=== PATIENT | male | born 1965 | race Caucasian/White ===

== ENCOUNTER 2020-04-23 10:28 | Day surgery (SDC) | payer OTHER ==
[2020-04-23 10:51] VITALS: TEMP 97.6
[2020-04-23] MEDS ORDERED: methylPREDNISolone ACETATE 80 MG/ML 1 ML VIAL ONE (10:57)
[2020-04-23] MEDS ORDERED: IOPAMIDOL M200 10 ML VIAL ONE (10:57)
--- NOTE | 2020-04-23 11:07 | P.PCN ---
Date of Procedure: 04/23/20 Procedure(s) Performed: PREOPERATIVE DIAGNOSIS: 1- Lumbar Degenerative Disc Diseases 2-Lumbar spondylosis with Facet arthropathy without myelopathy POSTOPERATIVE DIAGNOSIS: 1-Lumber Degenerative Disc Diseases 2-Lumbar spondylosis with Facet arthropathy without myelopathy PROCEDURE 1. Lumbar epidural steroid injection under fluoroscopic guidance at the L4-5 level. (Fluoroscopy imaging was available in radiology department) 2. Lumbar epidurogram. ANESTHESIA: Local with 1% lidocaine 3 ml only EBL: Minimal PROCEDURE INDICATION: The patient with low back pain and radiculitis symptoms unresponsive to conservative treatment. Fluoroscopy was used to optimize visualization of the needle placement and to maximize safety. PROCEDURE DESCRIPTION / TECHNIQUE: The patient was seen and identified in the preoperative area. Risks, benefits, complications including but not limited to infections ,bleeding ,allergic reaction to the medications ,nerve damage and not complete pain releife , and alternatives were discussed with the patient. The patient agreed to proceed with the procedure and signed the consent. IV was started, and vital signs were stable. Patient was taken to the OR and time out was completed. The patient was placed in the prone position on procedure table and a pillow was placed under the abdomen to reduce lumbar lordosis. The lumbosacral area was prepped and draped in the usual sterile fashion.ere closely monitored during the procedure. Vital signs was monitered during the entire procedure. Using anterior-posterior fluoroscopy, the L4-5 interlaminar space was identified and the skin over this site was marked and then infiltrated with 1% lidocaine subcutaneously. Subsequently, a 20-gauge Tuohy epidural needle was inserted and advanced toward the epidural space using the ``Loss of resistance technique and guided by AP and lateral fluoroscopy. The correct needle position in the epidural space was verified with the injection of 2 mL of the water soluble contrast dye Isovue 200 contrast and observing an excellent epidurogram with th e epidural spread of the dye, after negative aspiration for blood and CSF and in the absence of paresthesias. Again after negative aspiration, a 6 ml mixture containing 80 mg of Depo-medrol , and 2 ml of preservative free Normal Saline, and 2 ml of preservative free lidocaine 1% solution was injected and a washout of epidurogram was seen. Needle was withdrawn intact, skin was cleansed, and bandages were applied. COMPLICATIONS: None DISPOSITION / PLANS: The patient was placed in a supine position and transferred to the recovery area in a stable condition for observation. There was no evidenc e of lower extremity motor or sensory deficit after the procedure. Patient was discharged from the recovery room after meeting discharge criteria. Home discharge instructions were given to the patient by the staff. The patient was reexamined prior to discharge. The patient will schedule a follow up in the clinic in 2-4 weeks.
[2020-04-23 11:18] VITALS: RESP 16
[2020-04-23 11:35] VITALS: BP 134/90; PULSE 78
--- NOTE | 2020-04-23 12:13 | FL ---
EXAMINATION TYPE: FL guided pain mgmt statistic DATE OF EXAM: 04/23/2020 CLINICAL HISTORY: Low back pain. TECHNIQUE: Fluoroscopy. COMPARISON: None. FINDINGS: Fluoroscopic guidance was provided during pain relief procedure performed by Dr. Alvarez . A total of 5 seconds of fluoroscopic time was utilized during the procedure and 1 spot images are acquired. Single image acquired shows needle localization at L5 level with contrast injection. IMPRESSION: As Above.
== END 2020-04-23 11:40 | disposition home or self-care (01) ==
LOC: ORPAIN 10:28
PROVIDERS: ATTEND Specialist
DX: M51.16 Intervertebral disc disorders with radiculopathy, lumbar region (principal); M47.26 Other spondylosis with radiculopathy, lumbar region; G40.909 Epilepsy, unspecified, not intractable, without status epilepticus
CPT/HCPCS: 62323; J1040; Q9966

== ENCOUNTER 2020-06-06 11:37 | Day surgery (SDC) | payer OTHER ==
[2020-06-04 16:15] VITALS: BMI 30.5
[~2020-06-06 11:37] MED LIST: LACTATED RINGERS 1,000 ML IV SCH
[2020-06-06 12:13] VITALS: TEMP 97.5
[2020-06-06] MEDS ORDERED: fentaNYL (PF) 50 MCG/ML 2 ML AMP ONE (12:29)
[2020-06-06] MEDS ORDERED: TRIAMCINOLONE ACETONIDE 40 MG/ML 1 ML VIAL ONE (12:29)
[2020-06-06] MEDS ORDERED: IOPAMIDOL M200 10 ML VIAL ONE (12:29)
[2020-06-06] MEDS ORDERED: ROPIVACAINE 5MG/ML 20ML VIAL ONE (12:29)
--- NOTE | 2020-06-06 12:41 | P.PCN ---
Date of Procedure: 06/06/20 Surgeon: Navin De La O Pathology: none sent Condition: stable Disposition: PACU Description of Procedure: PREOPERATIVE DIAGNOSIS: 1-Lumbar radiculopathy 2- Lumber Degenerative Disc Diseases. POSTOPERATIVE DIAGNOSIS: 1-Lumbar radiculopathy. 2-Lumbar Degenerative Disc Diseases PROCEDURE 1. Lumbar epidural steroid injection under fluoroscopic guidance at the L4-5 level in the left paramedian approach. 2. Lumbar epidurogram. ANESTHESIA: Local with 1% lidocaine; and IV moderate conscious sedation with Fentanyl 100 mcg EBL: Minimal PROCEDURE INDICATION: The patient with low back pain and radiculitis symptoms unresponsive to conservative treatment. Fluoroscopy was used to optimize visualization of the needle placement and to maximize safety. PROCEDURE DESCRIPTION / TECHNIQUE: The patient was seen and identified in the preoperative area. Risks, benefits, complications including but not limited to infections ,bleeding ,allergic reaction to the medications ,nerve damage and not complete pain relief , and alternatives were discussed with the patient. The patient agreed to proceed with the procedure and signed the consent. IV was started, and vital signs were stable. Patient was taken to the OR and time out was completed. The patient was placed in the prone position on procedure table and a pillow was placed under the abdomen to reduce lumbar lordosis. The lumbosacral area was prepped and draped in the usual sterile fashion with ChloraPrep.Patient was closely monitored during the procedure. Conscious sedation was used during the procedure to decrease patients anxiety. Vital signs were monitered during the entire procedure. Using anterior-posterior fluoroscopy, the L4-5 interlaminar space was identified and the skin over this site was marked and then infiltrated with 1% lidocaine subcutaneously. Subsequently, a 20-gauge Tuohy epidural needle was inserted and advanced toward the epidural space using the Loss of resistance to air technique and guided by AP and lateral fluoroscopy. The correct needle position in the epidural space was verified with the injection of 1 mL of the water soluble contrast dye Omnipaque 180 contrast and observing an excellent epidurogram with the epidural spread of the dye, after negative aspiration for blood and CSF and in the absence of paresthesias. Again after negative aspiration, a 8 ml mixture containing 40 mg of Kenalog and 5 ml of preservative free Normal Saline, and 2 ml of preservative free ropivacaine 0.5% solution was injected and a washout of epidurogram was seen. Needle was withdrawn intact, skin was cleansed, and bandages were applied. patient tolerated procedure well and was transferred to PACU in stable condition.A copy of the needle placement picture was saved to the fluoroscopy machine. COMPLICATIONS: None DISPOSITION / PLANS: The patient was placed in a supine position and transferred to the recovery area in a stable condition for observation. There was no evidence of lower extremity motor or sensory deficit after the procedure. Patient was discharged from the recovery room after meeting discharge criteria. Home discharge instructions were given to the patient by the staff. The patient was reexamined prior to discharge. The patient will schedule a follow up in the clinic in 2-4 weeks.
[2020-06-06] MEDS ORDERED: IV FLUID CONTINUATION 1,000 ML IV ONE (12:46)
[2020-06-06 12:59] VITALS: BP 139/86; PULSE 76; RESP 18
--- NOTE | 2020-06-06 16:45 | FL ---
EXAMINATION TYPE: FL guided pain mgmt statistic DATE OF EXAM: 06/06/2020 COMPARISON: None HISTORY: Epidural injection TECHNIQUE: Fluoroscopy. FINDINGS: Fluoroscopic guidance was provided during procedure performed by Dr. De La O. A total of 4 seconds of fluoroscopic time was utilized during the procedure and 2 spot images was acquired. IMPRESSION: As Above.
== END 2020-06-06 13:24 | disposition home or self-care (01) ==
LOC: ORPAIN 11:37
PROVIDERS: ATTEND Anesthesiology
DX: M51.16 Intervertebral disc disorders with radiculopathy, lumbar region (principal); I10 Essential (primary) hypertension
CPT/HCPCS: 62323; J3301; J3010; Q9966; J2795

== ENCOUNTER → 2020-08-12 | Outpatient (CLI) | payer OTHER ==
[2020-08-12 09:25] VITALS: BP 123/83; PULSE 90; RESP 18; TEMP 98
--- NOTE | 2020-08-12 18:43 | P.PN ---
Subjective Progress Note Date: 08/12/20 This is a follow-up visit for this 54 years old male with a chronic history of severe low back pain, patient was seen previously [facility] pain [facility], and he stayed closed with lumbar degenerative disc disease and lumbar spondylosis , previous that we have done lumbar epidural steroid in [facility], patient continued to have pain after the epidural steroid injection and later on he had lumbar laminectomy surgery in May 2020, currently patient complaining of severe localized pain with radiation to the right buttock area, pain is severe intensity is increased with any activity interfere with the quality of life, he denies any fever or night sweats. No change in bowel movement or urination, he should continue to use [place] 10/325 every 8 hours when necessary Neurontin 300 mg 3 times a day, and baclofen 20 mg 3 times a day he denies any side effect of the medication and his MS Contin prescription refills from his primary care Objective - Vital Signs Vital signs: Vital Signs Temp 98.0 F 08/12/20 09:17 Pulse 90 08/12/20 09:17 Resp 18 08/12/20 09:17 BP 123/83 08/12/20 09:17 Pulse Ox 97 08/12/20 09:17 - Exam Physical Examinations : -Constitutiona : Cooperative , not in acute distress . -HEENT : nech : supple , no Lymphadenopathy , normal thyroid size . : eyes : no ptosis , no icterus, no photophobia . - neurologic : Cranial nerve II to XII intact , no focal neurological deffecit . -psychatric : alert , oriented X 3 , appropriate affect , intact judgment and insight . -Lymphatic : no Lymphadenopathy . - musculoskeltal : Lumber spine moter stegnth lower extremities ,thigh and legs 4/5 Right side , 5/5 Left side deep tendon reflexes : normal Knee Jerk , normal ankle Jerk lumber facet Loading Test =positive Right , positive Left Range of motion of the lumbar spine Flexion 30 degrees, extension 10 degrees strait leg raising test = positive at 30 degree on the right side elevates positive at 45 at the left side Fabere test= positive Right , and positive LT . Sever tenderness over the Sacroiliac joint on the Right. Gaenslen test= positive right . Seated flexion test= positive right . Assessment and Plan Plan: Assessment and plan=1-right sacroiliitis. 2-lumbar degenerative disc disease. 3-lumbar spondylosis with lumbar facet arthropathy. Patient could benefit from right side sacroiliac steroid injections under fluoroscopy guidance x1 and after that patient will follow up with Dr Kaur - [facility] measures = - Patient's medications are documented in the chart. -Tobacco use is positive, and counseling.Given. -Patient's has not received pneumococcal vaccine. -Advanced care planning discussed, patient not eligible. -Opiate contract signed. -Pain positive and follow-up visit/procedure is scheduled. -Patient's blood pressure measured [123/83 ] , and documented in the record ,and patient will follow up with the primary care. -Patient's weight was measured and body mass index [ ] above the normal limits and counseling was done. and patient instructed to follow-up with the primary care physician. -Patient was not identified as an unhealthy alcohol user Time with Patient: Less than 30
== END | disposition home or self-care (01) ==
LOC: PNWHC3 08:39
PROVIDERS: ATTEND Specialist
DX: M46.1 Sacroiliitis, not elsewhere classified (principal); M47.816 Spondylosis without myelopathy or radiculopathy, lumbar region; M51.36 Other intervertebral disc degeneration, lumbar region; Z79.891 Long term (current) use of opiate analgesic; Z79.899 Other long term (current) drug therapy
CPT/HCPCS: 99211

== ENCOUNTER → 2020-09-10 | Day surgery (SDC) | payer OTHER ==
[2020-09-05 12:10] VITALS: BMI 29.8
[~2020-09-10] MED LIST changes: +IOPAMIDOL M200 10 ML VIAL ONE; -LACTATED RINGERS 1,000 ML IV SCH; +methylPREDNISolone ACETATE 40 MG/ML 1 ML VIAL ONE
[2020-09-10 11:40] VITALS: RESP 16; TEMP 97.6
--- NOTE | 2020-09-10 12:09 | P.PCN ---
Date of Procedure: 09/10/20 Description of Procedure: Preoperative diagnoses: right sacroilitis Postoperative diagnoses: right sacroilitis. Procedure: right sacroiliac joint steroid injection under fluoroscopic guidance. Surgeon: Claude Bear MD Anesthesia: [2 mL of 1% lidocaine Fluoroscopy was used for the procedure and fluoroscopic images were saved to the radiology portion of the patient's chart. EBL: None Procedure indication: The patient had a history of severe chronic low back pain, diagnosed with sacroiliitis unresponsive to conservative treatment. Procedure description: The patient was seen and identified in the preoperative holding area, risks and benefits and alternative of the procedure and possible complications discussed with the patient, and patient agreed with the preceding, patient signed the consent, an IV was started, and vital signs were monitored and were stable throughout the procedure, patient was placed in the prone position on table and the lumbosacral area was prepped and draped with a sterile fashion, vital signs were closely monitored during the procedure, the fluoroscopy camera was placed in the contralateral oblique view on the right sacroiliac joint and the lower part of the joint was identified . Then the skin and subcutaneous tissue was anesthetized using 2 mL of 1% lidocaine then a 22- gauge Quincke-type spinal needle advanced slowly under fluoroscopy and placed in the posterior and inferior border of the right sacroiliac joint, placement confirmed with AP and lateral view, and after appropriate needle placement confirmed and after negative aspiration for heme, 1 mL of Isovue 200 was injected revealing intra-articular spread. Then a solution consisting of 2 ml of ropivacaine 0.5% and 40 mg of depomedrol injected after negative aspiration, no paresthesia during the injection, no resistance to injection, and the needle was removed. Total of 40 mg of depomedrol was used for the procedure. Patient tolerated the procedure well without any complication. The patient was returned to supine position after the back was cleaned and a Band-Aid applied, the patient was transported to recovery room in stable condition and monitored for 30 minutes before being discharged home. The patient will follow up with Dr Kaur
[2020-09-10 12:15] VITALS: BP 133/92; PULSE 79
--- NOTE | 2020-09-10 12:28 | FL ---
EXAMINATION TYPE: FL guided pain mgmt statistic DATE OF EXAM: 09/10/2020 HISTORY: Fluoroscopy time 3 seconds of fluoroscopy provided. IMPRESSION: 1. Fluoroscopy time.
== END ==
LOC: ORPAIN 11:25
PROVIDERS: ATTEND Anesthesiology
DX: G89.29 Other chronic pain (principal); M46.1 Sacroiliitis, not elsewhere classified
CPT/HCPCS: J1030; Q9966; G0260; 27096

== ENCOUNTER → 2020-10-16 | Outpatient (CLI) | payer OTHER ==
[2020-10-16 08:37] VITALS: BP 126/79; PULSE 81; RESP 18; TEMP 98.6
--- NOTE | 2020-10-16 09:04 | P.PN ---
Subjective Progress Note Date: 10/16/20 follow visit for this 54 years old male with a chronic history of severe low back pain, patient had lumbar laminectomy and fusion surgery done in May 2020, recently redundant right sacroiliac joint steroid injection, and this helped his right buttock pain, patient reported that currently he is complaining of severe low back pain in the low back area with radiation to the lower extremity associated with some numbness and tingling sensation that radiates to both feet, he is not able to sit or stand, secondary to the pain, he is able to ambulate freely, he denies any motor or sensory deficit he denies any fever or night sweats, he continued to use [place] 10/325 and Neurontin 300 mg 3 times a d ay as prescribed by Dr PEREZ (neurosurgery ) Objective - Vital Signs Vital signs: Vital Signs Temp 98.6 F 10/16/20 08:33 Pulse 81 10/16/20 08:33 Resp 18 10/16/20 08:33 BP 126/79 10/16/20 08:33 Pulse Ox 97 10/16/20 08:33 - Exam Physical Examinations : -Constitutiona : Cooperative , not in acute distress . -HEENT : nech : supple , no Lymphadenopathy , normal thyroid size . : eyes : no ptosis , no icterus, no photophobia . - neurologic : Cranial nerve II to XII intact , no focal neurological deffecit . -psychatric : alert , oriented X 3 , appropriate affect , intact judgment and insight . -Lymphatic : no Lymphadenopathy . - musculoskeltal : Lumber spine moter stegnth lower extremities ,thigh and legs 5/5 Right side , 5/5 Left side deep tendon reflexes : normal Knee Jerk , normal ankle Jerk lumber facet Loading Test =positive Right , posiutive Left Range of motion of the lumbar spine Flexion 30 degrees, extension 10 degrees strait leg raising test = positive at 30 degree Fabere test= positive Right , and positive LT . Sever tenderness over the Sacroiliac joint on the Right , and Left sides Gaenslen test= positive right ,and positive left . Seated flexion test= positive right ,and positive Left . Assessment and Plan Plan: Assessment and plan=1-bilateral sacroiliitis. 2-lumbar radiculopathy. 3-history of lumbar laminectomy and fusion surgery. 4-myofascial pain syndrome upper lumbar area Patient is already scheduled to have physical therapy in the lumbar area he will start tomorrow Patient could benefit from bilateral sacroiliac joint steroid injection . - PQRS measures = - Patient's medications are documented in the chart. -Tobacco use is positive, and counseling.Given. -Patient's has not received pneumococcal vaccine. -Advanced care planning discussed, patient not eligible. -Opiate contract not signed. -Pain positive and follow-up visit/procedure is scheduled. -Patient's blood pressure measured [ 126/79 ] , and documented in the record ,and patient will follow up with the primary care. -Patient's weight was measured and body mass index [ 30.9 ] above the normal limits and counseling was done. and patient instructed to follow-up with the primary care physician. -Patient was not identified as an unhealthy alcohol user Time with Patient: Less than 30
== END | disposition home or self-care (01) ==
LOC: PNWHC3 08:11
PROVIDERS: ATTEND Specialist
DX: M54.16 Radiculopathy, lumbar region (principal); M46.1 Sacroiliitis, not elsewhere classified; M79.18 Myalgia, other site; Z79.890 Hormone replacement therapy
CPT/HCPCS: 99211

== ENCOUNTER 2020-11-05 09:27 | Day surgery (SDC) | payer OTHER ==
[2020-11-01 17:36] VITALS: BMI 30.7
[2020-11-05 09:45] VITALS: TEMP 97.8
[2020-11-05] MEDS ORDERED: MIDAZOLAM 2 MG/2 ML VIAL ONE (09:52)
[2020-11-05] MEDS ORDERED: ROPIVACAINE 5MG/ML 20ML VIAL ONE (09:52)
[2020-11-05] MEDS ORDERED: IOPAMIDOL M200 10 ML VIAL ONE (09:52)
[2020-11-05] MEDS ORDERED: methylPREDNISolone ACETATE 40 MG/ML 1 ML VIAL ONE (09:52)
[2020-11-05] MEDS ORDERED: fentaNYL (PF) 50 MCG/ML 2 ML AMP ONE (09:52)
[2020-11-05] MEDS ORDERED: LACTATED RINGERS 1,000 ML BAG IV ONE (09:52)
--- NOTE | 2020-11-05 10:13 | P.PCN ---
Date of Procedure: 11/05/20 Description of Procedure: PREOPERATIVE DIAGNOSIS: Sacroiliac joint dysfunction POSTOPERATIVE DIAGNOSIS: Sacroiliac joint dysfunction. PROCEDURES: 1. Bilateral Sacroiliac joint steroid injection 2. Sacroiliac joint arthrogram. SURGEON: Wally Aguirre ANESTHESIA: Local and IV sedation : 2 mg Versed, and 100 g of fentanyl. EBL: None. Specimen removed: None Fluoroscopic image: saved to electronic medical records. PROCEDURE INDICATIONS: This patient with a history of chronic low back pain, and sacroiliac joint dysfunction. Patient tried conservative therapy. Came here for intervention management. PROCEDURE DESCRIPTION: The patient was seen and identified in the preoperative area. Risks, benefits, complications, and alternatives were discussed with the patient. The patient agreed to proceed with the procedure and signed the consent. IV was started, and vital signs were stable. Patient was taken to the OR and time out was completed. The patient was placed in the prone position on procedure table and a pillow was placed under the abdomen to reduce lumbar lordosis. The lumbosacral area was prepped and draped in the usual sterile fashion. Critical pause was taken. Vital signs were closely monitored during the procedure. For the right side, the fluoroscopic camera was placed in left oblique view and right SI joint lower pole was identified. Skin entry point was infiltrated with 1% lidocaine and 22-gauge 3.5 inch spinal needle was introduced into the inferior one-third of SI joint and after penetrating into the joint arthrogram was done. 0.5 ml of [id number] contrast was injected after negative aspiration for blood, and air and negative for paresthesia. Good spread of the contrast into the SI joint has been seen. Then again after negative aspiration of spinal fluid and blood and negative for neurological symptoms, 3 mL of a solution containing total 2.5 mL of 0.5 % preservative-free ropivacaine mixed with 20 mg of Depo-Medrol was injected. The entire procedure was repeated on the left side as above. Needle was withdrawn intact. Skin was cleansed, and bandages were applied. COMPLICATIONS: None. DISPOSITION / PLANS: The patient was placed in a supine position and transferred to the recovery area in a stable condition for observation and was discharged from the recovery room after meeting discharge criteria. Home discharge instructions given to the patient by the staff. The patient was reexamined prior to discharge. The patient will schedule for follow-up visit with the pain clinic in 4 weeks duration.
[2020-11-05] MEDS ORDERED: IV FLUID CONTINUATION 1,000 ML IV ONE (10:18)
--- NOTE | 2020-11-05 10:19 | FL ---
EXAMINATION TYPE: FL guided pain mgmt statistic DATE OF EXAM: 11/05/2020 HISTORY: Fluoroscopy time 5 seconds of fluoroscopy provided. IMPRESSION: 1. Fluoroscopy time.
[2020-11-05 10:25] VITALS: PULSE 85; RESP 16
[2020-11-05 10:32] VITALS: BP 132/79
== END 2020-11-05 10:49 | disposition home or self-care (01) ==
LOC: ORPAIN 09:27
DX: G89.29 Other chronic pain (principal); M53.3 Sacrococcygeal disorders, not elsewhere classified; R56.9 Unspecified convulsions; I10 Essential (primary) hypertension; Z98.890 Other specified postprocedural states
CPT/HCPCS: J2250; J1030; J3010; Q9966; J2795; G0260; 99152

== ENCOUNTER → 2020-12-02 | Outpatient (CLI) | payer OTHER ==
--- NOTE | 2020-12-02 08:42 | P.PN ---
Subjective Progress Note Date: 12/02/20 This is follow visit for this 55 years old male with a chronic history of severe low back pain, patient had lumbar laminectomy and fusion surgery done in May 2020, recently we have done Bilateral sacroiliac joint steroid injection, and this helped his buttock pain, patient reported that the injection helped his pain and he is able to do more activity of daily living, he is not able to sit or stand, secondary to the pain, he is able to ambulate freely, he denies any motor or sensory deficit he denies any fever or night sweats, he continue to use Percocet 10/325 ,,and Neurontin 300 mg 3 times a day , baclofen 20 mg 3 times a day as prescribed by Dr KAUR (neurosurgery ) Physical Examinations : -Constitutiona : Cooperative , not in acute distress . -HEENT : nech : supple , no Lymphadenopathy , normal thyroid size . : eyes : no ptosis , no icterus, no photophobia . - neurologic : Cranial nerve II to XII intact , no focal neurological deffecit . -psychatric : alert , oriented X 3 , appropriate affect , intact judgment and insight . -Lymphatic : no Lymphadenopathy . - musculoskeltal : Lumber spine moter stegnth lower extremities ,thigh and legs 5/5 Right side , 5/5 Left side deep tendon reflexes : normal Knee Jerk , normal ankle Jerk lumber facet Loading Test =positive Right , posiutive Left Range of motion of the lumbar spine Flexion 30 degrees, extension 10 degrees strait leg raising test = positive at 30 degree Fabere test= positive Right , and positive LT . Sever tenderness over the Sacroiliac joint on the Right , and Left sides Gaenslen test= positive right ,and positive left . Seated flexion test= positive right ,and positive Left . Assessment and plan=1-bilateral sacroiliitis. 2-lumbar radiculopathy. 3-history of lumbar laminectomy and fusion surgery. 4-myofascial pain syndrome upper lumbar area Discussed with the patient the option of repeating ,bilateral sacroiliac joint steroid injection . Patient preferred to see Dr. Kaur, and he will follow up with us when necessary if he decides to have injection we can repeat bilateral sacroiliac joint steroid injection - PQRS measures = - Patient's medications are documented in the chart. -Tobacco use is positive, and counseling.Given. -Patient's has not received pneumococcal vaccine. -Advanced care planning discussed, patient not eligible. -Opiate contract not signed. -Pain positive and follow-up visit/procedure is scheduled. -Patient's blood pressure measured [ 139/88 ] , and documented in the record ,and patient will follow up with the primary care. -Patient's weight was measured and body mass index [ 30.9 ] above the normal limits and counseling was done. and patient instructed to follow-up with the primary care physician. -Patient was not identified as an unhealthy alcohol user Objective - Vital Signs Vital signs: Vital Signs Temp 98.0 F 12/02/20 08:29 Pulse 77 12/02/20 08:29 Resp 18 12/02/20 08:29 BP 139/88 12/02/20 08:29 Pulse Ox 98 12/02/20 08:29 Intake & Output 12/01/20 12/02/20 12/02/20 18:59 06:59 18:59 Weight 103.419 kg
== END ==
CPT/HCPCS: 99211

== ENCOUNTER → 2021-02-26 | Outpatient (CLI) | payer OTHER ==
[2021-02-26 08:01] VITALS: BP 126/83; PULSE 82; RESP 18; TEMP 98.1
--- NOTE | 2021-02-26 08:28 | P.PN ---
Subjective Progress Note Date: 02/26/21 This is a follow-up visit for this 55 years old male with a chronic history of severe low back pain, and diagnosed with bilateral sacroiliitis, and had lumbar laminectomy surgery last year, previously we have done bilateral sacroiliac joint steroid injection, currently is complaining of severe mid back pain, patient had MRI of the lumbar spine, and at the [facility], showed that she had multilevel lumbar degenerative disc disease T5 to T78 , she reported that currently most of the pain in the thoracic area, patient done physical therapy in the past without any benefit , and currently he is doing home exercises without any benefit, he is currently on Celebrex 200 mg by mouth daily when necessary, and baclofen 10 mg when necessary, and he reported the current medication is not helping to control his pain, and ambulate using a walker, she some weakness in his lower extremity Objective - Vital Signs Vital signs: Vital Signs Temp 98.1 F 02/26/21 07:51 Pulse 82 02/26/21 07:51 Resp 18 02/26/21 07:51 BP 126/83 02/26/21 07:51 Pulse Ox 97 02/26/21 07:51 - Exam Physical Examinations : -Constitutiona : Cooperative , not in acute distress . -HEENT : nech : supple , no Lymphadenopathy , normal thyroid size . : eyes : no ptosis , no icterus, no photophobia . - neurologic : Cranial nerve II to XII intact , no focal neurological deffecit . -psychatric : alert , oriented X 3 , appropriate affect , intact judgment and insight . -Lymphatic : no Lymphadenopathy . - musculoskeltal : Thoracic Spine Flexion and extension of the thoracic spine associated with severe pain Interval trigger point identified in the right side thoracic paraspinal muscles Lumber spine moter stegnth lower extremities ,thigh and legs 5/5 Right side , 5/5 Left side deep tendon reflexes : normal Knee Jerk , normal ankle Jerk lumber facet Loading Test =positive Right , positive Left Range of motion of the lumbar spine Flexion 30 degrees, extension 10 degrees strait leg raising test = positive at 30 degree Fabere test= positive Right , and positive LT . Sever tenderness over the Sacroiliac joint on the Right , and Left sides Gaenslen test= positive right ,and positive left . Seated flexion test= positive right ,and positive Left . Distraction test= positive bilaterally Assessment and Plan Plan: Assessment and plan=1-thoracic degenerative disc disease. 2-myofascial pain syndrome thoracic paraspinal muscles. 3-bilateral sacroiliitis. 4-laminectomy lumbar area. he could benefit from thoracic epidural steroid injection, T67 OR T7 8, and then the same time he can do trigger point injection Thoracic paraspinal muscles. in the future we can do sacroiliac joint steroid injection. - PQRS measures = - Patient's medications are documented in the chart. -Tobacco use is positive, and counseling.Given. -Patient's has not received pneumococcal vaccine. -Advanced care planning discussed, patient not eligible. -Opiate contract not signed. -Pain positive and follow-up visit/procedure is scheduled. -Patient's blood pressure measured [126/82 ] , and documented in the record ,and patient will follow up with the primary care. -Patient's weight was measured and body mass index [ 30 ] above the normal limits and counseling was done. and patient instructed to follow-up with the primary care physician. -Patient was not identified as an unhealthy alcohol user Time with Patient: Less than 30
== END ==
LOC: PNWHC3 07:38
PROVIDERS: ATTEND Specialist
DX: M51.34 Other intervertebral disc degeneration, thoracic region (principal); M79.18 Myalgia, other site; M46.1 Sacroiliitis, not elsewhere classified; M96.1 Postlaminectomy syndrome, not elsewhere classified
CPT/HCPCS: 99211

== ENCOUNTER 2021-06-17 09:50 | Day surgery (SDC) | payer OTHER ==
[2021-06-16 12:29] VITALS: BMI 28.8
[2021-06-17] MEDS ORDERED: LACTATED RINGERS 1,000 ML IV SCH (10:07)
[2021-06-17] MEDS ORDERED: LIDOCAINE 1% (10MG/ML) FOR IV START INTRADERMA ONE (10:25)
[2021-06-17 10:28] VITALS: TEMP 97.8
[2021-06-17] MEDS ORDERED: MIDAZOLAM 2 MG/2 ML VIAL ONE (10:29)
[2021-06-17] MEDS ORDERED: methylPREDNISolone ACETATE 40 MG/ML 1 ML VIAL ONE (10:29)
[2021-06-17] MEDS ORDERED: fentaNYL (PF) 50 MCG/ML 2 ML AMP ONE (10:29)
[2021-06-17] MEDS ORDERED: IOPAMIDOL M200 10 ML VIAL ONE (10:29)
[2021-06-17] MEDS ORDERED: ROPIVACAINE 5MG/ML 20ML VIAL ONE (10:29)
--- NOTE | 2021-06-17 10:51 | P.PCN ---
Date of Procedure: 06/17/21 Procedure(s) Performed: PREOPERATIVE DIAGNOSIS: 1- Thoracic Degenerative Disc Diseases 2-myofascial pain syndrome thoracic paraspinal muscles POSTOPERATIVE DIAGNOSIS: Same as preop diagnosis. PROCEDURE 1. Thoracic epidural steroid injection under fluoroscopic guidance at the T7-8 level. (Fluoroscopy imaging was available in radiology department) 2. Thoracic epidurogram. 3. Trigger point injection right side Thoracic paraspinal muscles , a total of 3 trigger point injected on the right side thoracic paraspinal muscles. ANESTHESIA: Local with 1% lidocaine 3 ml and , moderate sedation with intravenous Versed 2 mg ,and fentanyle 100 Mcg EBL: Minimal PROCEDURE INDICATION: The patient with mid back pain and radiculitis symptoms unresponsive to conservative treatment. Fluoroscopy was used to optimize visualization of the needle placement and to maximize safety. PROCEDURE DESCRIPTION / TECHNIQUE: The patient was seen and identified in the preoperative area. Risks, benefits, complications including but not limited to infections ,bleeding ,allergic re action to the medications ,nerve damage and not complete pain releife , and alternatives were discussed with the patient. The patient agreed to proceed with the procedure and signed the consent. IV was started, and vital signs were stable. Patient was taken to the OR and time out was completed. The patient was placed in the prone position on procedure table and a pillow was placed under the abd omen to reduce lumbar lordosis. The lumbosacral area was prepped and draped in the usual sterile fashion.ere closely monitored during the procedure. Conscious sedation was used during the procedure to decrease patients anxiety. Vital signs was monitered during the entire procedure. Using anterior-posterior fluoroscopy, the T7-8 interlaminar space was identified and the skin over this site was marked and then infiltrated with 1% lidocaine subcutaneously. Subsequently, a 20-gauge Tuohy epidural needle was inserted and advanced toward the epidural space using the ``Loss of resistance technique and guided by AP and lateral fluoroscopy. The correct needle position in the epidural space was verified with the injection of 2 mL of the water soluble contrast dye Isovue 200 contrast and observing an excellent epidurogram with the epidural spread of the dye, after negative aspiration for blood and CSF and in the absence of paresthesias. Again after negative aspiration, a 6 ml mixture containing 80 mg of Depo-medrol , and 2 ml of preservative free Normal Saline, and 2 ml of preservative free lidocaine 1% solution was injected and a washout of epidurogram was seen. Needle was withdrawn intact, Then after that the trigger point which was identified in the preop holding area, of 3 trigger point identified in the right side thoracic paraspinal muscles each one of them injected with ropivacaine 0.5% 3 ml injected at each trigger point after negative aspiration, injection done using 25-gauge needle and there was no paresthesia during the injection, patient tolerated the procedure well without any complications COMPLICATIONS: None DISPOSITION / PLANS: The patient was placed in a supine position and transferred to the recovery area in a stable condition for observation. There was no evidence of lower extremity motor or sensory deficit after the procedure. Patient was discharged from the recovery room after meeting discharge criteria. Home discharge instructions were given to the patient by the staff. The patient was reexamined prior to discharge. The patient will schedule a follow up in the clinic in 2-4 weeks.
[2021-06-17] MEDS ORDERED: IV FLUID CONTINUATION 1,000 ML IV ONE ×2 (10:52)
[2021-06-17 10:54] VITALS: RESP 18
[2021-06-17 11:31] VITALS: BP 123/79; PULSE 71
--- NOTE | 2021-06-17 11:56 | FL ---
EXAMINATION TYPE: FL guided pain mgmt statistic DATE OF EXAM: 06/17/2021 CLINICAL HISTORY: Back pain. TECHNIQUE: Fluoroscopy. COMPARISON: None. FINDINGS: Fluoroscopic guidance was provided during pain relief procedure performed by Dr. Alvarez . A total of 4 seconds of fluoroscopic time was utilized during the procedure and 1 spot images are acquired. Single image acquired shows needle localization at level of a mid to lower thoracic verteb ra. IMPRESSION: As Above.
== END 2021-06-17 11:37 | disposition home or self-care (01) ==
LOC: ORPAIN 09:50
PROVIDERS: ATTEND Specialist
DX: M79.18 Myalgia, other site (principal)
CPT/HCPCS: 62321; 20553; J2250; J1030; J3010; Q9966; J2795; 99152

== ENCOUNTER 2021-07-15 11:54 | Day surgery (SDC) | payer OTHER ==
[2021-07-11 11:27] VITALS: BMI 29.4
[~2021-07-15 11:54] MED LIST changes: -IOPAMIDOL M200 10 ML VIAL ONE; +LACTATED RINGERS 1,000 ML IV SCH; -methylPREDNISolone ACETATE 40 MG/ML 1 ML VIAL ONE
[2021-07-15 12:55] VITALS: RESP 16; TEMP 98.2
[2021-07-15] MEDS ORDERED: IOPAMIDOL M200 10 ML VIAL ONE (13:08)
[2021-07-15] MEDS ORDERED: TRIAMCINOLONE ACETONIDE 40 MG/ML 1 ML VIAL ONE (13:08)
[2021-07-15] MEDS ORDERED: ROPIVACAINE 5MG/ML 20ML VIAL ONE (13:08)
--- NOTE | 2021-07-15 13:25 | P.PCN ---
Date of Procedure: 07/15/21 Surgeon: Navin De La O Pathology: none sent Condition: stable Disposition: PACU Description of Procedure: PREOPERATIVE DIAGNOSIS: 1- Thoracic Degenerative Disc Diseases 2-myofascial pain syndrome thoracic paraspinal muscles POSTOPERATIVE DIAGNOSIS: Same as preop diagnosis. PROCEDURE 1. Thoracic epidural steroid injection under fluoroscopic guidance at the T7-8 level in the right paramedian approach. 2. Thoracic epidurogram. 3. Trigger point injection right side Thoracic paraspinal muscles , a total of 2 trigger point injected on the right side thoracic paraspinal muscles. ANESTHESIA: Local only with 1% lidocaine EBL: Minimal PROCEDURE INDICATION: The patient with mid back pain and radiculitis symptoms unresponsive to conservative treatment. Fluoroscopy was used to optimize visualization of the needle placement and to maximize safety. PROCEDURE DESCRIPTION / TECHNIQUE: The patient was seen and identified in the preoperative area. Risks, benefits, complications including but not limited to infections ,bleeding ,allergic reaction to the medications ,nerve damage and not complete pain releife , and alternatives were discussed with the patient. The patient agreed to proceed with the procedure and signed the consent. IV was started, and vital signs were stable. Patient was taken to the OR and time out was completed. The patient was placed in the prone position on procedure table and a pillow was placed under the abdomen to reduce lumbar lordosis. The lumbosacral area was prepped and draped in the usual sterile fashion.ere closely monitored during the procedure. Vital signs was monitered during the entire procedure. Using anterior-posterior fluoroscopy, the T 7-8 interlaminar space was identified and the skin over this site was marked and then infiltrated with 1% lidocaine subcutaneously. Subsequently, a 20-gauge Tuohy epidural needle was inserted and advanced toward the epidural space using the ``Loss of resistance technique and guided by AP and lateral fluoroscopy. The correct needle position in the epidural space was verified with the injection of 2 mL of the water soluble contrast dye Isovue 200 contrast and observing an excellent epidurogram with the epidural spread of the dye, after negative aspiration for blood and CSF and in the absence of paresthesias. Again after negative aspiration, a 6 ml mixture containing 40 mg of Kenalog , and 3 ml of preservative free Normal Saline, and 2 ml of preservative free lidocaine 1% solution was injected and a washout of epidurogram was seen. Needle was withdrawn intact, Then after that the trigger point which was identified in the preop holding area, of 2 trigger point identified in the right side thoracic paraspinal muscles each one of them injected with ropivacaine 0.5% 1 ml injected at each trigger point after negative aspiration, injection done using 25-gauge needle and there was no paresthesia during the injection, patient tolerated the procedure well without any complications COMPLICATIONS: None DISPOSITION / PLANS: The patient was placed in a supine position and transferred to the recovery area in a stable condition for observation. There was no evidence of lower extremity motor or sensory deficit after the procedure. Patient was discharged from the recovery room after meeting discharge criteria. Home discharge instructions were given to the patient by the staff. The patient was reexamined prior to discharge. The patient will schedule a follow up in the clinic in 2-4 weeks. A copy of the needle placement picture was saved the C-arm in the radiology department. Of note the patient is a smoker with recent history of intentional weight loss. The patient is scheduled to have thoracic MRI in the next few weeks as he states.
[2021-07-15 13:41] VITALS: BP 116/78; PULSE 68
--- NOTE | 2021-07-15 14:24 | FL ---
Fluoroscopy HISTORY: Pain 17 seconds fluoroscopy time supplied to the referring clinician. 2 intraoperative C-arm images docum ent the procedure. See dictated report from anesthesia.
== END 2021-07-15 13:56 | disposition home or self-care (01) ==
LOC: ORPAIN 11:54
PROVIDERS: ATTEND Anesthesiology
DX: M51.14 Intervertebral disc disorders with radiculopathy, thoracic region (principal); M79.18 Myalgia, other site; I10 Essential (primary) hypertension; F17.200 Nicotine dependence, unspecified, uncomplicated
CPT/HCPCS: 20553; 62321; J3301; Q9966; J2795

== ENCOUNTER → 2021-08-11 | Outpatient (CLI) | payer OTHER ==
[2021-08-11 10:31] VITALS: BP 122/88; PULSE 81; RESP 18
--- NOTE | 2021-08-11 10:44 | P.PN ---
Subjective Progress Note Date: 08/11/21 This is a follow-up visit for this 55 years old male with a chronic history of severe mid ,and low back pain, he is diagnosed with bilateral sacroiliitis, and had lumbar laminectomy surgery last year, recently with a thoracic epidural steroid injections 2 and trigger point injectionthoracic area , he reported that he had relief for a few weeks ,currently is complaining of severe mid back pain, patient had CT myelogram of the thoracic spine, and at the [facility], showed that she had multilevel disc herniation T5 to T78 , patient done physical therapy in the past without any benefit , and currently he is doing home exercises without any benefit, he is currently on baclofen 10 mg when necessary, and he reported the current medication is not helping to control his pain, and ambulate using a walker, she some weakness in his lower extremity Physical Examinations : -Constitutiona : Cooperative , not in acute distress . -HEENT : nech : supple , no Lymphadenopathy , normal thyroid size . : eyes : no ptosis , no icterus, no photophobia . - neurologic : Cranial nerve II to XII intact , no focal neurological deffecit . -psychatric : alert , oriented X 3 , appropriate affect , intact judgment and insight . -Lymphatic : no Lymphadenopathy . - musculoskeltal : Thoracic Spine Flexion and extension of the thoracic spine associated with severe pain Interval trigger point identified in the right side thoracic paraspinal muscles Lumber spine moter stegnth lower extremities ,thigh and legs 5/5 Right side , 5/5 Left side deep tendon reflexes : normal Knee Jerk , normal ankle Jerk lumber facet Loading Test =positive Right , positive Left Range of motion of the lumbar spine Flexion 30 degrees, extension 10 degrees strait leg raising test = positive at 30 degree Fabere test= positive Right , and positive LT . Sever tenderness over the Sacroiliac joint on the Right , and Left sides Gaenslen test= positive right ,and positive left . Seated flexion test= positive right ,and positive Left . Distraction test= positive bilaterally Assessment and Plan Plan: Assessment and plan=1-thoracic degenerative disc disease. 2-myofascial pain syndrome thoracic paraspinal muscles. 3-bilateral sacroiliitis. 4-laminectomy lumbar area. he could benefit from thoracic epidural steroid injection, T67 OR T7 8, and then the same time he can do trigger point injection Thoracic paraspinal muscles. - PQRS measures = - Patient's medications are documented in the chart. -Tobacco use is positive, and counseling.Given. -Patient's has not received pneumococcal vaccine. -Advanced care planning discussed, patient not eligible. -Opiate contract not signed. -Pain positive and follow-up visit/procedure is scheduled. -Patient's blood pressure measured [122/88 ] , and documented in the record ,and patient will follow up with the primary care. -Patient's weight was measured and body mass index [ 28.8] above the normal limits and counseling was done. and patient instructed to follow-up with the primary care physician. -Patient was not identified as an unhealthy alcohol user Time with Patient: Less than 30 Objective - Vital Signs Vital signs: Vital Signs Temp Pulse 81 08/11/21 10:22 Resp 18 08/11/21 10:22 BP 122/88 08/11/21 10:22 Pulse Ox 95 08/11/21 10:22
== END ==
LOC: PNWHC3 09:37
PROVIDERS: ATTEND Specialist
DX: M51.34 Other intervertebral disc degeneration, thoracic region (principal); M79.18 Myalgia, other site; M46.1 Sacroiliitis, not elsewhere classified; Z98.890 Other specified postprocedural states; F17.200 Nicotine dependence, unspecified, uncomplicated
CPT/HCPCS: 99211

== ENCOUNTER 2021-10-28 09:39 | Day surgery (SDC) | payer OTHER ==
[2021-10-27 13:41] VITALS: BMI 28.7
[2021-10-28 09:58] VITALS: TEMP 97.3
[2021-10-28] MEDS ORDERED: LIDOCAINE 1% (10MG/ML) FOR IV START INTRADERMA PRN (10:01)
[2021-10-28] MEDS ORDERED: LACTATED RINGERS 1,000 ML IV SCH (10:01)
[2021-10-28] MEDS ORDERED: TRIAMCINOLONE ACETONIDE 40 MG/ML 1 ML VIAL ONE (10:09)
[2021-10-28] MEDS ORDERED: ROPIVACAINE 5MG/ML 20ML VIAL ONE (10:09)
[2021-10-28] MEDS ORDERED: IOPAMIDOL M200 10 ML VIAL ONE (10:09)
--- NOTE | 2021-10-28 10:34 | P.PCN ---
Date of Procedure: 10/28/21 Description of Procedure: PREOPERATIVE DIAGNOSIS: 1- Thoracic Radiculopathy 2- Myofascial pain syndrome thoracic paraspinal muscles POSTOPERATIVE DIAGNOSIS: Same as preop diagnosis. PROCEDURE 1. Thoracic epidural steroid injection under fluoroscopic guidance at the T7-8 level in the Left paramedian approach. 2. Thoracic epidurogram. 3. Trigger point injection bilateral thoracic paraspinal muscles , a total of 2 trigger point injected on the right side thoracic paraspinal muscles. ANESTHESIA: Local only with 1% lidocaine EBL: Minimal PROCEDURE INDICATION: The patient with mid back pain and radiculitis symptoms unresponsive to conservative treatment. Fluoroscopy was used to optimize visualization of the needle placement and to maximize safety. Has had previous epidural injections at this level without complication. Patient has been off Motrin >2 days and informed not take until 24 hours after procedure. PROCEDURE DESCRIPTION / TECHNIQUE: The patient was seen and identified in the preoperative area. Risks, benefits, complications including but not limited to infections ,bleeding ,allergic reaction to the medications ,nerve damage and not complete pain releife , and alternatives were discussed with the patient. The patient agreed to proceed with the procedure and signed the consent. IV was started, and vital signs were stable. Patient was taken to the OR and time out was completed. The patient was placed in the prone position on procedure table and a pillow was placed under the abdomen to reduce lumbar lordosis. The thoracic area was prepped and draped in the usual sterile fashion.ere closely monitored during the procedure. Vital signs was monitered during the entire procedure. Using anterior-posterior fluoroscopy, the T 7-8 interlaminar space was identified and the skin over this site was marked and then infiltrated with 1% lidocaine subcutaneously. Subsequently, a 20-gauge Tuohy epidural needle was inserted and advanced toward the epidural space using the ``Loss of resistance technique and guided by AP fluoroscopy. The correct needle position in the epidural space was verified with the injection of 2 mL of the water soluble contrast dye Isovue 200 contrast and observing an excellent epidurogram with the epidural spread of the dye, after negative aspiration for blood and CSF and in the absence of paresthesias. Again after negative aspiration, a 4 ml mixture containing 40 mg of Kenalog , and 3 ml of preservative free Normal Saline was injected and a washout of epidurogram was seen. Needle was withdrawn intact, Then after that the trigger point which was identified in the preop holding area, of 2 trigger point identified on the right and left of the midline of T7- T8 thoracic paraspinal muscles each one of them injected with ropivacaine 0.5% 2 ml + 20mg Kenalog injected at each trigger point after negative aspiration, injection done using 25-gauge needle and there was no paresthesia during the injection, patient tolerated the procedure well without any complications COMPLICATIONS: None DISPOSITION / PLANS: The patient was placed in a supine position and transferred to the recovery area in a stable condition for observation. There was no evidence of lower extremity motor or sensory deficit after the procedure. Patient was discharged from the recovery room after meeting discharge criteria. Home discharge instructions were given to the patient by the staff. The patient was reexamined prior to discharge. The patient will schedule a follow up in the clinic in 2-4 weeks.
[2021-10-28 10:37] VITALS: BP 126/86; PULSE 73; RESP 16
--- NOTE | 2021-10-28 10:39 | FL ---
EXAMINATION TYPE: FL guided pain mgmt statistic DATE OF EXAM: 10/28/2021 CLINICAL HISTORY: TESI TECHNIQUE: Fluoroscopy. COMPARISON: 07/15/2021 FINDINGS: Thoracic epidural steroid injection. Fluoroscopic guidance was provided during procedure p erformed by Dr. Toribio. A total of 13 seconds of fluoroscopic time was utilized during the procedu re and 3 spot images were acquired. IMPRESSION: As Above.
== END 2021-10-28 10:54 | disposition home or self-care (01) ==
LOC: ORPAIN 09:39
PROVIDERS: ATTEND Anesthesiology
DX: M54.14 Radiculopathy, thoracic region (principal); M79.18 Myalgia, other site
CPT/HCPCS: 20553; 62321; J3301; J2795; 99152

== ENCOUNTER → 2021-11-13 | Outpatient (CLI) | payer OTHER ==
[2021-11-13 12:53] VITALS: BP 125/80; PULSE 87; RESP 18; TEMP 98.8
--- NOTE | 2021-11-13 13:12 | P.PN ---
Subjective Progress Note Date: 11/13/21 Principal diagnosis: A 55 yr old male with a history of severe and chronic mid back pain secondary to thoracic degenerative disc diseases and spondylosis with facet arthropathy presents today for evaluation status post CABRERA T7-T8 with TPIs. Patient states he experienced 5% pain relief status post procedure. Pain level is currently at 5 out of 10 in intensity, dull, achy in the middle aspect of his mid back without radiation of pain. Pain is provoked by lifting, twisting and bending. Patient has been prolonging surgery due to being a caregiver for multiple grandchildren. Pain is alleviated with medications, epidural injections, ice and heat which has been minimally beneficial, repositioning, physical therapy which provided no pain relief, daily stretches/ exercises and rest. Interventional pain procedures completed include TESI T7-T8 x3. Patient is currently on Tyllenol OTC, Neurontin, Baclofen. Patient denies any side effects of the medication(s), denies excessive drowsiness or sleepiness, denies suicidal ideation and reports that the current pain medication is helping to control the pain and improve activities of daily living. Patient denies any motor or sensory deficits. Patient denies any fever or night sweats, denies any change in the bowel movements or urination. Physical Examination: -Constitutional: Cooperative. Not in acute distress . -HEENT: Neck is supple. No lymphadenopathy. No thyromegaly. Normal thyroid size. Eyes: No ptosis , no icterus, no photophobia. ENT: No auditory deficits. Normal oropharynx. No Thrush. - Respiratory: Chest clear to auscultations bilaterally. No wheezing. No rhonchi. - Cardiovascular: Regular rate and rhythm. S1 / S2 , no S3 , no S4. - Gastrointestinal: Abdomen soft no tenderness. Bowel sounds positive in all four quadrants. No organomegaly. - Genitourinary: Deferred. - Neurologic: Cranial nerve II to XII intact. No focal neurological deficits. - Psychatric: Alert & oriented x 3. Matching mood & appropriate affect. Judgment and insight intact. - Lymphatic: No Lymphadenopathy. - Musculoskeletal: Cervical spine: Muscle bulk/ tone/ strength in the bilateral upper extremities normal. Facet loading test cervical area positive. Thoracic spine: Vertebral body tenderness to palpation over T7 with accompanying paraspinal tenderness to palpation Lumbar spine: Motor bulk/ tone/ strength lower extremities , thigh and legs : 5/5 Deep tendon reflexes : Normal Knee Jerk. Normal Ankle Jerk . Vertebral body tenderness to palpation over Lumbar Facet Loading Test positive Straight Leg Raise: positive at 30 degrees right side/ left side Gaenslen's Test positive Sacral spine : Severe tenderness over the Sacroiliac joint: right side / left side Range of motion: Flexion of the lumbar spine <60 degrees Range of motion: Extension of the lumbar spine <20 degrees Gaenslen's Test positive Anai test: positive right side / left side Assessment and plan: Chronic mid back pain secondary to thoracic degenerative disc disease , spondylosis with facet arthropathy without myelopathy Recommendation of TPIs though pt is disinterested at this time. Discussed reconsideration of TESI in the near future. Pt will continue pain management through medication means at this time. Diagnoses, prognosis and treatment options including but not limited to physical therapy, surgical interventions, interventional therapies and medication management including narcotics and adjuvant medication were discussed. All patient questions answered MAPS reviewed and it was appropriate. I have spent 31 minutes on patient care today. Dr Alvarez was available by phone for the evaluation of this patient. The time was used to review the medical records including relevant urine studies and Prescription history (MAPs), review of the available imaging, evaluation and examination of the patient, coordination of care with the medical staff and if applicable referring physicians, as well as creation of the medical record Objective - Vital Signs Vital signs: Vital Signs Temp 98.8 F 11/13/21 12:47 Pulse 87 11/13/21 12:47 Resp 18 11/13/21 12:47 BP 125/80 11/13/21 12:47 Pulse Ox 96 11/13/21 12:47 PQRS Measure Charge Sheet Mode of Arrival: Ambulatory - Pain Location Back Non-Pharmacological Interventions: Heat, Home Exercise, Ice, Inactivity, Position/Reposition, Stretching Pharmacological Interventions: Epidural, PRN Medication PQRS Narrative: Smoking Status Current every day smoker Blood Pressure 125/80 Pain Intensity [Back] 5 Scale Used Numeric (1 - 10) Hx Alcohol Use (MH) No: HISTORY OF ABUSE. QUIT 10 YEARS AGO Home Medications: Ambulatory Orders Albuterol Inhaler [Ventolin Hfa Inhaler] 2 puff INHALATION Q4H PRN 03/20/20 Eslicarbazepine Acetate [Aptiom] 1,200 mg PO HS 03/20/20 Gabapentin 300 mg PO TID PRN 03/20/20 amLODIPine [Norvasc] 10 mg PO DAILY 03/20/20 hydroCHLOROthiazide 25 mg PO DAILY 03/20/20 levETIRAcetam [Keppra] 500 mg PO Q12HR 03/20/20 Baclofen [Lioresal] 20 mg PO TID PRN 08/08/20 Fluticasone/Salmeterol [Advair 250-50 Diskus] 1 inhalation PO BID 08/08/20 Ibuprofen [Motrin] 800 mg PO Q6H PRN 02/20/21 Finasteride [Proscar] 5 mg PO DAILY 06/16/21
== END ==
LOC: PNWHC3 12:12
PROVIDERS: ATTEND Specialist
DX: M51.34 Other intervertebral disc degeneration, thoracic region (principal); M47.814 Spondylosis without myelopathy or radiculopathy, thoracic region; G89.29 Other chronic pain; F17.200 Nicotine dependence, unspecified, uncomplicated
CPT/HCPCS: 99211

== ENCOUNTER → 2022-07-30 | Outpatient (CLI) | payer MEDICARE, OTHER ==
[2022-07-30 14:35] VITALS: BP 158/94; PULSE 95; RESP 18; TEMP 98.5
--- NOTE | 2022-07-30 14:47 | P.PAINPG ---
PQRS Measure Charge Sheet Comment: A 56 yr old male with a history of severe and chronic mid back pain secondary to thoracic DDD, spondylosis and facet arthropathy without myelopathy presents today for evaluation. Pain level is currently at 5 /10 in intensity, constant, localized in the center of his mid back, sore shooting towards the flanks. Pain is provoked by walking/ standing for periods of 15 min or more, bending, lifting. Pain is alleviated with PT yrs ago, medications (Baclofen, Neurontin, Ibu), repositioning and rest. Interventional pain procedures completed include TESI T7-T8, TPIs of Thoracic spine, BL SI x2, LESIs. Patient is currently on Neurontin, Baclofen, Ibuprofen Patient denies any side effects of the medication(s), denies excessive drowsiness or sleepiness, denies suicidal ideation and reports that the current pain medication is helping to control the pain and improve activities of daily living. Patient denies any motor or sensory deficits. Patient denies any fever or night sweats, denies any change in the bowel movements or urination. Physical Examination: -Constitutional: Cooperative. Not in acute distress . - Neurologic: Cranial nerve II to XII intact. No focal neurological deficits. - Psychatric: Alert & oriented x 3. Matching mood & appropriate affect. Judgment and insight intact. - Musculoskeletal: Cervical spine: Muscle bulk/ tone/ strength in the bilateral upper extremities normal Vertebral body tenderness to palpation over Spurling test positive Distraction test positive Facet loading test positive Thoracic spine Muscle bulk / tone/ strength in the bilateral paraspinal muscles normal Vertebral body tender to palpation over T8 Facet loading test positive Lumbar spine: Motor bulk/ tone/ strength lower extremities , thigh and legs : 5/5 Deep tendon reflexes : Normal Knee Jerk. Normal Ankle Jerk . Vertebral body tenderness to palpation over Lumbar Facet Loading Test positive Straight Leg Raise: positive at 30 degrees right side/ left side Gaenslen's Test positive Sacral spine : Severe tenderness over the Sacroiliac joint: right side / left side Range of motion: Flexion of the lumbar spine <60 degrees Range of motion: Extension of the lumbar spine <20 degrees Gaenslen's Test positive Anai test: positive right side / left side Thigh Thrust Test Sacral Thrust Test Assessment and plan: Chronic low back pain secondary to lumbar degenerative disc disease, spondylosis with facet arthropathy without myelopathy Recommendation of TESI T8-T9. May need a series, up to 4 per 12 mo period, for optimal pain relief. Risks, benefits of procedure discussed and pt verbalized understanding. Admits to anticoagulant use or medical history of diabetes. Protocol for discontinuation/ continuation of medications lam procedure discussed. All patient questions answered I have spent less than 30 minutes on patient care today. Dr Alvarez was available by phone for the evaluation of this patient. The time was used to review the medical records including relevant urine studies and Prescription history (MAPs), review of the available imaging, evaluation and examination of the patient, coordination of care with the medical staff and if applicable referring physicians, as well as creation of the medical record - Pain Location Bilateral Lower Back Non-Pharmacological Interventions: Inactivity, Position/Reposition, Stretching Pharmacological Interventions: PRN Medication, Scheduled Medication PQRS Narrative: Smoking Status Current every day smoker Hx Alcohol Use (MH) No: HISTORY OF ABUSE. QUIT 10 YEARS AGO Home Medications: Ambulatory Orders Albuterol Inhaler [Ventolin Hfa Inhaler] 2 puff INHALATION Q4H PRN 03/20/20 Eslicarbazepine Acetate [Aptiom] 1,200 mg PO HS 03/20/20 Gabapentin 300 mg PO TID PRN 03/20/20 amLODIPine [Norvasc] 10 mg PO DAILY 03/20/20 hydroCHLOROthiazide 25 mg PO DAILY 03/20/20 levETIRAcetam [Keppra] 500 mg PO Q12HR 03/20/20 Baclofen [Lioresal] 20 mg PO TID PRN 08/08/20 Fluticasone Propion/Salmeterol [Advair 250-50 Diskus] 1 inhalation PO BID 08/08/20 Ibuprofen [Motrin] 800 mg PO Q6H PRN 02/20/21 Finasteride [Proscar] 5 mg PO DAILY 06/16/21 Diclofenac Sodium Gel [Voltaren Gel] 100 gm TOPICAL BID PRN 30 Days #1 each 07/30/22 Controlled Substance Measures - Controlled Substance Measures Is patient prescribed a controlled substance at discharge?: No
== END ==
LOC: PNWHC3 14:09
PROVIDERS: ATTEND Specialist
DX: M47.816 Spondylosis without myelopathy or radiculopathy, lumbar region (principal); E11.9 Type 2 diabetes mellitus without complications; G89.29 Other chronic pain; M51.36 Other intervertebral disc degeneration, lumbar region; F17.200 Nicotine dependence, unspecified, uncomplicated
CPT/HCPCS: 99211

== ENCOUNTER 2022-09-03 10:58 | Day surgery (SDC) | payer MEDICARE, OTHER ==
[2022-08-31 18:08] VITALS: BMI 28.8
[2022-09-03] MEDS ORDERED: LACTATED RINGERS 1,000 ML IV SCH (12:31)
[2022-09-03] MEDS ORDERED: LIDOCAINE 1% (10MG/ML) FOR IV START INTRADERMA PRN (12:31)
[2022-09-03 12:39] VITALS: TEMP 98
[2022-09-03] MEDS ORDERED: methylPREDNISolone ACETATE 80 MG/ML 1 ML VIAL ONE (12:56)
[2022-09-03] MEDS ORDERED: IOPAMIDOL M200 10 ML VIAL ONE (12:56)
--- NOTE | 2022-09-03 13:08 | P.PCN ---
Date of Procedure: 09/03/22 Procedure(s) Performed: PREOPERATIVE DIAGNOSIS: 1- Thoracic Degenerative Disc Diseases 2-myofascial pain syndrome thoracic paraspinal muscles POSTOPERATIVE DIAGNOSIS: Same as preop diagnosis. PROCEDURE 1. Thoracic epidural steroid injection under fluoroscopic guidance at the T8-9 level. (Fluoroscopy imaging was available in radiology department) 2. Thoracic epidurogram. ANESTHESIA: Local with 1% lidocaine 3 ml only. EBL: Minimal PROCEDURE INDICATION: The patient with mid back pain and radiculitis symptoms unresponsive to conservative treatment. Fluoroscopy was used to optimize visualization of the needle placement and to maximize safety. PROCEDURE DESCRIPTION / TECHNIQUE: The patient was seen and identified in the preoperative area. Risks, benefits, complications including but not limited to infections ,bleeding ,allergic reaction to the medications ,nerve damage and not complete pain releife , and alternatives were discussed with the patient. The patient agreed to proceed with the procedure and signed the consent. IV was started, and vital signs were stable. Patient was taken to the OR and time out was completed. The patient was placed in the prone position on procedure table and a pillow was placed under the abdomen to reduce lumbar lordosis. The Thoracic area was prepped and draped in the usual sterile fashion.ere closely monitored during the procedure. Vital signs was monitered during the entire procedure. Using anterior-posterior fluoroscopy, the T8-9 interlaminar space was identified and the skin over this site was marked and then infiltrated with 1% lidocaine subcutaneously. Subsequently, a 20-gauge Tuohy epidural needle was inserted and advanced toward the epidural space using the ``Loss of resistance technique and guided by AP and lateral fluoroscopy. The correct needle position in the epidural space was verified with the injection of 2 mL of the water soluble contrast dye Isovue 300 contrast and observing an excellent epidurogram with the epidural spread of the dye, after negative aspiration for blood and CSF and in the absence of paresthesias. Again after negative aspiration, a 4 ml mixture containing 80 mg of Depo-medrol , and 2 ml of preservative free Normal Saline, and 1 ml of preservative free lidocaine 1% solution was injected and a washout of epidurogram was seen. Needle was withdrawn intact,, patient tolerated the procedure well without any complications COMPLICATIONS: None DISPOSITION / PLANS: The patient was placed in a supine position and transferred to the recovery area in a stable condition for observation. There was no evidence of lower extremity motor or sensory deficit after the procedure. Elmer archer was discharged from the recovery room after meeting discharge criteria. Home discharge instructions were given to the patient by the staff. The patient was reexamined prior to discharge. The patient will schedule a follow up in the clinic in 2-4 weeks.
[2022-09-03 13:18] VITALS: BP 153/96; PULSE 82; RESP 16
--- NOTE | 2022-09-03 13:26 | FL ---
EXAMINATION TYPE: FL guided pain mgmt statistic DATE OF EXAM: 09/03/2022 HISTORY: Fluoroscopy time 11 seconds of fluoroscopy provided. IMPRESSION: 1. Fluoroscopy time.
== END 2022-09-03 13:33 | disposition home or self-care (01) ==
LOC: ORPAIN 10:58
PROVIDERS: ATTEND Specialist
DX: M51.14 Intervertebral disc disorders with radiculopathy, thoracic region (principal); M79.18 Myalgia, other site
CPT/HCPCS: 62321; J1040; Q9966

== ENCOUNTER → 2022-09-17 | Outpatient (CLI) | payer MEDICARE, OTHER ==
[2022-09-17 12:37] VITALS: BP 149/91; PULSE 70; RESP 18; TEMP 98.7
--- NOTE | 2022-09-17 14:58 | P.PAINPG ---
PQRS Measure Charge Sheet Comment: A 56 yr old male with a history of severe and chronic mid back pain secondary to thoracic DDD and spondylosis with facet arthropathy without myelopathy presents today for evaluation s/p TRINI T8-T9. Pt states he experienced 50% pain relief x 2 wks s/p procedure. Pain level is provoked at 10/10 in intensity, constant, localized in the thoracic spine, pressure like in character w shooting towards the BL flanks. Pain is provoked by twisting, bending. Pain is alleviated with medications, topicals, injections, ice, heat, PT x 1 1/2 wks which provoked pain, home stretching as needed, repositioning and rest. Interventional pain procedures completed include TRINI T8-T9 x1, L4-L5 x1; R SI injection Patient is currently on Neurontin, Ibu Patient denies any side effects of the medication(s), denies excessive drowsiness or sleepiness, denies suicidal ideation and reports that the current pain medication is helping to control the pain and improve activities of daily living. Patient denies any motor or sensory deficits. Patient denies any fever or night sweats, denies any change in the bowel movements or urination. Physical Examination: -Constitutional: Cooperative. Not in acute distress . - Neurologic: Cranial nerve II to XII intact. No focal neurological deficits. - Psychatric: Alert & oriented x 3. Matching mood & appropriate affect. Judgment and insight intact. - Musculoskeletal: Cervical spine: Muscle bulk/ tone/ strength in the bilateral upper extremities normal Vertebral body tenderness to palpation over Spurling test positive Distraction test positive Facet loading test positive Thoracic spine Muscle bulk / tone/ strength in the bilateral paraspinal muscles normal Vertebral body tender to palpation over Facet loading test positive Lumbar spine: Motor bulk/ tone/ strength lower extremities , thigh and legs : 5/5 Deep tendon reflexes : Normal Knee Jerk. Normal Ankle Jerk . Vertebral body tenderness to palpation over Lumbar Facet Loading Test positive Straight Leg Raise: positive at 30 degrees right side/ left side Gaenslen's Test positive Sacral spine : Severe tenderness over the Sacroiliac joint: right side / left side Range of motion: Flexion of the lumbar spine <60 degrees Range of motion: Extension of the lumbar spine <20 degrees Gaenslen's Test positive Anai test: positive right side / left side Thigh Thrust Test Sacral Thrust Test Assessment and plan: Chronic mid back pain secondary to thoracic DDD, spondylosis with facet arthropathy without myelopathy Pt exhibited sufficient pain relief w TRINI procedure. He will manage residual pain at home and may follow up at our clinic as needed. All patient questions answered I have spent less than 30 minutes on patient care today. Dr Alvarez was available by phone for the evaluation of this patient. The time was used to review the medical records including relevant urine studies and Prescription history (MAPs), review of the available imaging, evaluation and examination of the patient, coordination of care with the medical staff and if applicable referring physicians, as well as creation of the medical record PQRS Narrative: Smoking Status Current every day smoker Hx Alcohol Use (MH) No: HISTORY OF ABUSE. QUIT 10 YEARS AGO Home Medications: Ambulatory Orders Albuterol Inhaler [Ventolin Hfa Inhaler] 2 puff INHALATION Q4H PRN 03/20/20 Eslicarbazepine Acetate [Aptiom] 1,200 mg PO HS 03/20/20 Gabapentin 300 mg PO TID PRN 03/20/20 amLODIPine [Norvasc] 10 mg PO DAILY 03/20/20 hydroCHLOROthiazide 25 mg PO DAILY 03/20/20 Baclofen [Lioresal] 20 mg PO TID PRN 08/08/20 Fluticasone Propion/Salmeterol [Advair 250-50 Diskus] 1 inhalation PO BID 08/08/20 Ibuprofen [Motrin] 800 mg PO Q6H PRN 02/20/21 Finasteride [Proscar] 5 mg PO DAILY 06/16/21 Diclofenac Sodium Gel [Voltaren Gel] 100 gm TOPICAL BID PRN 30 Days #1 each 09/03/22 Controlled Substance Measures - Controlled Substance Measures Is patient prescribed a controlled substance at discharge?: No
== END ==
LOC: PNWHC3 11:54
PROVIDERS: ATTEND Specialist
DX: M47.814 Spondylosis without myelopathy or radiculopathy, thoracic region (principal); G89.29 Other chronic pain; M51.34 Other intervertebral disc degeneration, thoracic region; F17.200 Nicotine dependence, unspecified, uncomplicated
CPT/HCPCS: 99211

== ENCOUNTER → 2023-02-10 | Outpatient (CLI) | payer MEDICARE, OTHER ==
--- NOTE | 2023-02-10 13:31 | P.PAINPG ---
PQRS Measure Charge Sheet Comment: A 57 yr old male with a history of severe and chronic mid back pain secondary to thoracic DDD and spondylosis with facet arthropathy without myelopathy presents today for evaluation s/p TRINI T8-9. PT states he experienced 80-90% pain relief x 3 mo s/p procedure. Pain level is provoked at 8 /10 in intensity, constant, localized in the mid central thoracic spine, stabbing in character w shooting towards the R ribs. Pain is provoked by walking/ sitting for periods of 20 min or over activity. Pain is alleviated with PT in 2019 without relief, use of a TENS unit in 2019 which provoked pain, physician guided home stretching daily since 2019, injections, medications, topical, repositioning and rest. Interventional pain procedures completed include TRINI T8-T9 x1 Patient is currently on Neurontin, Baclofen, Ibu, Voltaren gel Patient denies any side effects of the medication(s), denies excessive drowsiness or sleepiness, denies suicidal ideation and reports that the current pain medication is helping to control the pain and improve activities of daily living. Patient denies any motor or sensory deficits. Patient denies any fever or night sweats, denies any change in the bowel movements or urination. Physical Examination: -Constitutional: Cooperative. Not in acute distress . - Neurologic: Cranial nerve II to XII intact. No focal neurological deficits. - Psychatric: Alert & oriented x 3. Matching mood & appropriate affect. Judgment and insight intact. - Musculoskeletal: Cervical spine: Muscle bulk/ tone/ strength in the bilateral upper extremities normal Vertebral body tenderness to palpation over Spurling test positive Distraction test positive Facet loading test positive TTP Thoracic spine Muscle bulk / tone/ strength in the bilateral paraspinal muscles normal Vertebral body tender to palpation over T8 Facet loading test positive TTP Lumbar spine: Motor bulk/ tone/ strength lower extremities , thigh and legs : 5/5 Deep tendon reflexes : Normal Knee Jerk. Normal Ankle Jerk . Vertebral body tenderness to palpation over Lumbar Facet Loading Test positive Straight Leg Raise: positive at 30 degrees right side/ left side Gaenslen's Test positive Sacral spine : Severe tenderness over the Sacroiliac joint: right side / left side Range of motion: Flexion of the lumbar spine <60 degrees Range of motion: Extension of the lumbar spine <20 degrees Gaenslen's Test positive right side / left side Anai test: positive right side / left side Thigh Thrust Test positive right side / left side Sacral Thrust Test positive right side / left side Assessment and plan: Chronic mid back pain secondary to thoracic DDD, spondylosis with facet arthropathy without myelopathy Recommendation of TRINI T8-T9 #2. May need a series of injections for optimal pain relief. Risks, benefits of procedure discussed and pt verbalized understanding. Admits to anticoagulant use or medical history of diabetes. [place] 5/325mg #18 NR. Use, side effects, adverse reactions and safe storage discussed. Protocol for discontinuation/ continuation of medications lam procedure discussed. Minimal anesthesia provided, if clinically indicated, consisting of Versed and Fentanyl. All questions answered. I have spent less than 30 minutes on patient care today. Dr Alvarez was available by phone for the evaluation of this patient. The time was used to review the medical records including relevant urine studies and Prescription history (MAPs), review of the available imaging, evaluation and examination of the patient, coordination of care with the medical staff and if applicable referring physicians, as well as creation of the medical record PQRS Narrative: Smoking Status Current every day smoker Hx Alcohol Use (MH) No: HISTORY OF ABUSE. QUIT 10 YEARS AGO Home Medications: Ambulatory Orders Eslicarbazepine Acetate [Aptiom] 800 mg PO HS 03/20/20 Gabapentin 300 mg PO DAILY@1300 03/20/20 amLODIPine [Norvasc] 10 mg PO HS 03/20/20 hydroCHLOROthiazide 25 mg PO HS 03/20/20 Baclofen [Lioresal] 20 mg PO DAILY@1300 08/08/20 Ibuprofen [Motrin] 800 mg PO BID 02/20/21 Finasteride [Proscar] 5 mg PO DAILY 06/16/21 Diclofenac Sodium Gel [Voltaren Gel] 1 applic TOPICAL BID PRN 10/09/22 Eslicarbazepine Acetate [Aptiom] 400 mg PO HS 10/09/22 HYDROcodone/APAP 5-325MG [[place] 5-325] 1 tab PO Q4HR PRN 3 Days #18 tab 02/10/23 Controlled Substance Measures - Controlled Substance Measures Is patient prescribed a controlled substance at discharge?: Yes When asked, does pt state using other controlled substances?: No If prescribed controlled substance>3 days was MAPS reviewed?: Prescribed <3 Days If Rx opioid, was Start Talking consent form obtained?: Yes If opioid is for acute pain is fill amount 7 days or less?: Yes Was information provided regarding opioid addiction?: Yes
[2023-02-10 13:57] VITALS: BP 150/95; PULSE 80; RESP 18; TEMP 98.6
== END ==
LOC: PNWHC3 11:03
PROVIDERS: ATTEND Specialist
DX: M51.34 Other intervertebral disc degeneration, thoracic region (principal); M47.814 Spondylosis without myelopathy or radiculopathy, thoracic region; G89.29 Other chronic pain; F17.200 Nicotine dependence, unspecified, uncomplicated
CPT/HCPCS: 99211

== ENCOUNTER 2023-03-02 10:30 | Day surgery (SDC) | payer MEDICARE, OTHER ==
[2023-03-02 11:15] VITALS: RESP 16; TEMP 96.4
[2023-03-02] MEDS ORDERED: IOPAMIDOL M200 10 ML VIAL ONE (11:22)
[2023-03-02] MEDS ORDERED: DEXAMETHASONE SOD PHOSPHATE 10 MG/ML 1 ML VIAL ONE (11:22)
--- NOTE | 2023-03-02 11:41 | P.PCN ---
Date of Procedure: 03/02/23 Surgeon: Navin De La O Pathology: none sent Condition: stable Disposition: PACU Description of Procedure: PROCEDURE 1. Thoracic epidural steroid injection under fluoroscopic guidance, T8-9 . 2. Thoracic epidurogram. : PREOPERATIVE DIAGNOSIS: Thoracic DDD POSTOPERATIVE DIAGNOSIS: : Same as above ANESTHESIA: Local only anesthesia with 1% lidocaine PROCEDURE INDICATION: The patient with neck pain and radiculopathy unresponsive to conservative treatment consents for procedure. PROCEDURE DESCRIPTION / TECHNIQUE: The patient was seen and identified in the preoperative area. Risks, benefits, complications, including but not limited to infections ,bleeding , allergic reactions to the medications ,and not complete pain relief, and alternatives were discussed with the patient, the patient agreed to proceed with the procedure and signed the consent. Patient was taken to the OR and time out was completed. The patient was placed in the prone position on the procedure table. A pillow was placed under the patients chest to increase the flexion of the cervical spine . The cervical area was prepped and draped in the usual sterile fashion. Vital signs were closely monitored during the procedure. Conscious sedation was used during the procedure to decrease patients anxiety. Using anterior-posterior fluoroscopy, the T9 interlaminar space was identified and the skin over this site was marked and then infiltrated with 1% lidocaine subcutaneously. Subsequently, a 20-gauge 3-1/2-inch Tuohy epidural needle was inserted and advanced toward the epidural space by means of loss of resistance to air technique and guided by AP and lateral fluoroscopy. The needle tip contacted the lamina of T8 vertebra first, then it was walked off bone and into the epidural space using the loss of to air and fluoroscopic guidance to identify the epidural space. The correct needle position in the epidural space was verified with the injection of 1 mL of the water soluble contrast dye Isovue and observing an excellent epidurogram with the epidural spread of the dye, after negative aspiration for blood and CSF and in the absence of paresthesias. Again after negative aspiration, a 5 ml mixture containing 10 mg of Decadron and 4 ml of preservative free Normal Saline solution was injected and a washout of epidurogram was seen. Needle was withdrawn intact, skin was cleansed, and bandages were applied. A copy of the needle placement picture was saved to the fluoroscopy machine.
--- NOTE | 2023-03-02 11:59 | FL ---
EXAMINATION TYPE: FL guided pain mgmt statistic DATE OF EXAM: 03/02/2023 HISTORY: Fluoroscopy time Total dose area product (DAP) in uGy*m?, mGy*cm? (or similar): DAP .37209. IMPRESSION: 1. Fluoroscopy time.
[2023-03-02 12:01] VITALS: BP 160/103; PULSE 66
== END 2023-03-02 12:14 | disposition home or self-care (01) ==
LOC: ORPAIN 10:30
PROVIDERS: ATTEND Anesthesiology
DX: M51.14 Intervertebral disc disorders with radiculopathy, thoracic region (principal); I10 Essential (primary) hypertension
CPT/HCPCS: 62321; J1100; Q9966

== ENCOUNTER → 2023-03-25 | Outpatient (CLI) | payer MEDICARE, OTHER ==
[2023-03-25 12:40] VITALS: BP 157/105; PULSE 71; RESP 15; TEMP 98.2
--- NOTE | 2023-03-25 14:50 | P.PAINPG ---
PQRS Measure Charge Sheet Comment: A 57 yr old male with a history of severe and chronic mid back pain secondary to thoracic DDD and spondylosis with facet arthropathy without myelopathy presents today for evaluation s/p BL TFESI T8-9. Pt states he experienced % pain relief x 3 wks s/p procedure. Pain level is provoked at 8 /10 in intensity, constant, localized in the mid central thoracic spine, stabbing in character w shooting towards the R ribs. Pain is provoked by walking/ sitting for periods of 20 min or over activity. Pain is alleviated with PT in 2019 without relief, use of a TENS unit in 2019 which provoked pain, physician guided home stretching daily since 2019, injections, medications, topical, repositioning and rest. Oswestry axial pain score of 15. Pt stated he will follow up w Dr Kaur for thoracic myelomalacia. Interventional pain procedures completed include TRINI T8-T9 x2, BL TFESI T8-T9 x1 Patient is currently on Neurontin, Baclofen, Ibu, Voltaren gel Patient denies any side effects of the medication(s), denies excessive drowsiness or sleepiness, denies suicidal ideation and reports that the current pain medication is helping to control the pain and improve activities of daily living. Patient denies any motor or sensory deficits. Patient denies any fever or night sweats, denies any change in the bowel movements or urination. Physical Examination: -Constitutional: Cooperative. Not in acute distress . - Neurologic: Cranial nerve II to XII intact. No focal neurological deficits. - Psychatric: Alert & oriented x 3. Matching mood & appropriate affect. Judgment and insight intact. - Musculoskeletal: Cervical spine: Muscle bulk/ tone/ strength in the bilateral upper extremities normal Vertebral body tenderness to palpation over Spurling test positive Distraction test positive Facet loading test positive TTP Thoracic spine Muscle bulk / tone/ strength in the bilateral paraspinal muscles normal Vertebral body tender to palpation over T5 Facet loading test positive TTP Lumbar spine: Motor bulk/ tone/ strength lower extremities , thigh and legs : 5/5 Deep tendon reflexes : Normal Knee Jerk. Normal Ankle Jerk . Vertebral body tenderness to palpation over Lumbar Facet Loading Test positive Straight Leg Raise: positive at 30 degrees right side/ left side Gaenslen's Test positive Sacral spine : Severe tenderness over the Sacroiliac joint: right side / left side Range of motion: Flexion of the lumbar spine <60 degrees Range of motion: Extension of the lumbar spine <20 degrees Gaenslen's Test positive right side / left side Anai test: positive right side / left side Thigh Thrust Test positive right side / left side Sacral Thrust Test positive right side / left side Assessment and plan: Chronic mid back pain secondary to thoracic DDD, spondylosis with facet arthropathy without myelopathy Recommendation of TRINI T5-T6 #3. May need a series of injections for optimal pain relief. Risks, benefits of procedure discussed and pt verbalized understanding. Admits to anticoagulant use or medical history of diabetes. Protocol for discontinuation/ continuation of medications lam procedure discussed. Minimal anesthesia provided, if clinically indicated, consisting of Versed and Fentanyl. All questions answered. I have spent less than 30 minutes on patient care today. Dr Alvarez was available by phone for the evaluation of this patient. The time was used to review the medical records including relevant urine studies and Prescription history (MAPs), review of the available imaging, evaluation and examination of the patient, coordination of care with the medical staff and if applicable referring physicians, as well as creation of the medical record PQRS Narrative: Smoking Status Current every day smoker Hx Alcohol Use (MH) No: HISTORY OF ABUSE. QUIT 10 YEARS AGO Home Medications: Ambulatory Orders Eslicarbazepine Acetate [Aptiom] 800 mg PO HS 03/20/20 Gabapentin 300 mg PO DAILY@1300 03/20/20 amLODIPine [Norvasc] 10 mg PO HS 03/20/20 hydroCHLOROthiazide 25 mg PO HS 03/20/20 Baclofen [Lioresal] 20 mg PO DAILY@1300 08/08/20 Ibuprofen [Motrin] 800 mg PO BID 02/20/21 Finasteride [Proscar] 5 mg PO QAM 06/16/21 Eslicarbazepine Acetate [Aptiom] 400 mg PO HS 10/09/22 HYDROcodone/APAP 10-325MG [[place] 10-325] 1 tab PO Q4HR PRN 3 Days #18 tab 02/10/23 Methyl Salicylate/Menthol [Icy Hot 10-30% Cream] 1 applic TOPICAL DAILY PRN Controlled Substance Measures - Controlled Substance Measures Is patient prescribed a controlled substance at discharge?: No
== END ==
LOC: PNWHC3 12:05
PROVIDERS: ATTEND Specialist
DX: M51.34 Other intervertebral disc degeneration, thoracic region (principal); M47.814 Spondylosis without myelopathy or radiculopathy, thoracic region; G89.29 Other chronic pain; F17.200 Nicotine dependence, unspecified, uncomplicated
CPT/HCPCS: 99211

== ENCOUNTER 2023-04-27 08:01 | Day surgery (SDC) | payer MEDICARE, OTHER ==
[2023-04-27] MEDS ORDERED: LACTATED RINGERS 1,000 ML IV SCH (08:37)
[2023-04-27 08:43] VITALS: TEMP 97.4
[2023-04-27] MEDS ORDERED: IOPAMIDOL M200 10 ML VIAL ONE (08:57)
[2023-04-27] MEDS ORDERED: DEXAMETHASONE SOD PHOSPHATE 10 MG/ML 1 ML VIAL ONE (08:57)
--- NOTE | 2023-04-27 09:12 | P.PCN ---
Date of Procedure: 04/27/23 Surgeon: Navin De La O Description of Procedure: PROCEDURE 1. Thoracic epidural steroid injection under fluoroscopic guidance, T9-10 . 2. Thoracic epidurogram. : PREOPERATIVE DIAGNOSIS: Thoracic DDD POSTOPERATIVE DIAGNOSIS: : Same as above ANESTHESIA: Local only anesthesia with 1% lidocaine PROCEDURE DESCRIPTION / TECHNIQUE: The patient was seen and identified in the preoperative area. Risks, benefits, complications, including but not limited to infections ,bleeding , allergic reactions to the medications ,and not complete pain relief, and alternatives were discussed with the patient, the patient agreed to proceed with the procedure and signed the consent. The patient's pain today is more consistent with level T9-T10. Patient was taken to the OR and time out was completed. The patient was placed in the prone position on the procedure table. A pillow was placed under the patients chest to increase the flexion of the cervical spine . The cervical area was prepped and draped in the usual sterile fashion. Vital signs were closely monitored during the procedure. Conscious sedation was used during the procedure to decrease patients anxiety. Using anterior-posterior fluoroscopy, the T9-10 interlaminar space was identified and the skin over this site was marked and then infiltrated with 1% lidocaine subcutaneously. Subsequently, a 20-gauge 3-1/2-inch Tuohy epidural needle was inserted and advanced toward the epidural space by means of loss of resistance to air technique and guided by AP and lateral fluoroscopy. The needle tip contacted the lamina of T10 vertebra first, then it was walked off bone and into the epidural space using the loss of to air and fluoroscopic guidance to identify the epidural space. The correct needle position in the epidural space was verified with the injection of 1 mL of the water soluble contrast dye Isovue and observing an excellent epidurogram with the epidural spread of the dye, after negative aspiration for blood and CSF and in the absence of paresthesias. Again after negative aspiration, a 5 ml mixture containing 10 mg of Decadron and 4 ml of preservative free Normal Saline s olution was injected and a washout of epidurogram was seen. Needle was withdrawn intact, skin was cleansed, and bandages were applied. A copy of the needle placement picture was saved to the fluoroscopy machine.
[2023-04-27 09:14] VITALS: RESP 16
[2023-04-27 09:29] VITALS: BP 158/89; PULSE 68
--- NOTE | 2023-04-27 12:56 | FL ---
Intraoperative/procedural fluoroscopic services were provided. Total fluoroscopy time is 41.4 seconds with a total of 2 submitted images to PACS. Please see the operative/procedural note for further det ails. DAP: 0.59476 mGym2
== END 2023-04-27 09:31 | disposition home or self-care (01) ==
LOC: ORPAIN 08:01
PROVIDERS: ATTEND Anesthesiology
DX: M51.34 Other intervertebral disc degeneration, thoracic region (principal); I10 Essential (primary) hypertension
CPT/HCPCS: 62321; J1100; Q9966

== ENCOUNTER → 2023-05-10 | Outpatient (CLI) | payer MEDICARE, OTHER ==
[2023-05-10 13:41] VITALS: BP 167/102; PULSE 79; RESP 15; TEMP 98.4
--- NOTE | 2023-05-10 14:53 | P.PAINPG ---
PQRS Measure Charge Sheet Comment: A 57 yr old male with a history of severe and chronic mid back pain secondary to thoracic myelomalacia presents today for evaluation s/p BL TFESI T5-T6. Pt states he experienced 0% pain relief s/p procedure. Pain level is provoked at 8 /10 in intensity, constant, localized in the mid central thoracic spine, sharp in character w shooting towards the R ribs. Pain is provoked by walking/ sitting for periods of 20 min or over activity. Pain is alleviated with PT in 2019 without relief, use of a TENS unit in 2019 which provoked pain, physician guided home stretching daily since 2019, injections, medications, topical, repositioning and rest. Oswestry axial pain score of 15. Pt stated he will follow up w Dr Kaur for thoracic myelomalacia. Interventional pain procedures completed include TRINI T8-T9 x2, BL TFESI T8-T9 x1 Patient is currently on Neurontin, Baclofen, Ibu, Voltaren gel Patient denies any side effects of the medication(s), denies excessive drowsiness or sleepiness, denies suicidal ideation and reports that the current pain medication is helping to control the pain and improve activities of daily living. Patient denies any motor or sensory deficits. Patient denies any fever or night sweats, denies any change in the bowel movements or urination. Physical Examination: -Constitutional: Cooperative. Not in acute distress . - Neurologic: Cranial nerve II to XII intact. No focal neurological deficits. - Psychatric: Alert & oriented x 3. Matching mood & appropriate affect. Judgment and insight intact. - Musculoskeletal: Cervical spine: Muscle bulk/ tone/ strength in the bilateral upper extremities normal Vertebral body tenderness to palpation over Spurling test positive Distraction test positive Facet loading test positive TTP Thoracic spine Muscle bulk / tone/ strength in the bilateral paraspinal muscles normal Vertebral body tender to palpation over T5, T6, T7, T8 Facet loading test positive TTP Lumbar spine: Motor bulk/ tone/ strength lower extremities , thigh and legs : 5/5 Deep tendon reflexes : Normal Knee Jerk. Normal Ankle Jerk . Vertebral body tenderness to palpation over Lumbar Facet Loading Test positive Straight Leg Raise: positive at 30 degrees right side/ left side Gaenslen's Test positive Sacral spine : Severe tenderness over the Sacroiliac joint: right side / left side Range of motion: Flexion of the lumbar spine <60 degrees Range of motion: Extension of the lumbar spine <20 degrees Gaenslen's Test positive right side / left side Anai test: positive right side / left side Thigh Thrust Test positive right side / left side Sacral Thrust Test positive right side / left side Assessment and plan: Chronic mid back pain secondary to thoracic myelomalacia Recommendation of follow up w Dr Kaur and medication management. Risks, benefits discussed and pt verbalized understanding. Narcotic/ Opiate agreement signed today 05/10/23. [place] 7.5/325mg #60 w 1 RF. Use, side effects, adverse reactions and safe storage discussed. Pt acknowledged understanding. All questions answered. I have spent less than 30 minutes on patient care today. Dr Alvarez was a vailable by phone for the evaluation of this patient. The time was used to review the medical records including relevant urine studies and Prescription history (MAPs), review of the available imaging, evaluation and examination of the patient, coordination of care with the medical staff and if applicable referring physicians, as well as creation of the medical record PQRS Narrative: Smoking Status Current every day smoker Hx Alcohol Use (MH) No: HISTORY OF ABUSE. QUIT 10 YEARS AGO Home Medications: Ambulatory Orders Eslicarbazepine Acetate [Aptiom] 800 mg PO HS 03/20/20 Gabapentin 300 mg PO DAILY@1300 03/20/20 amLODIPine [Norvasc] 10 mg PO HS 03/20/20 hydroCHLOROthiazide 25 mg PO HS 03/20/20 Baclofen [Lioresal] 20 mg PO DAILY@1300 08/08/20 Ibuprofen [Motrin] 800 mg PO BID 02/20/21 Finasteride [Proscar] 5 mg PO QA 06/16/21 Eslicarbazepine Acetate [Aptiom] 400 mg PO HS 10/09/22 HYDROcodone/APAP 7.5-325MG [[place] 7.5-325] 1 tab PO BID PRN 30 Days #60 tab 05/10/23 HYDROcodone/APAP 7.5-325MG [[place] 7.5-325] 1 tab PO BID PRN 30 Days #60 tab 05/10/23 Controlled Substance Measures - Controlled Substance Measures Is patient prescribed a controlled substance at discharge?: Yes When asked, does pt state using other controlled substances?: Yes If prescribed controlled substance>3 days was MAPS reviewed?: Yes If Rx opioid, was Start Talking consent form obtained?: Yes Was information provided regarding opioid addiction?: Yes
== END ==
LOC: PNWHC3 13:08
PROVIDERS: ATTEND Specialist
DX: G95.89 Other specified diseases of spinal cord (principal); M47.814 Spondylosis without myelopathy or radiculopathy, thoracic region; F17.200 Nicotine dependence, unspecified, uncomplicated; G89.29 Other chronic pain
CPT/HCPCS: 99211